=== PATIENT | female | born 1970 | race African-American/Black ===

== ENCOUNTER 2017-12-13 15:27 | Emergency (ER) | payer OTHER ==
[~2017-12-13] VITALS: Ht 167.6 cm; Wt 131.1 kg
[2017-12-13 17:27] LABS: BASOPHILS # (AUTO) 0.1 (0.0-0.1); BASOPHILS % 0.9 % (0.0-1.0); EOSINOPHILS # (AUTO) 0.3 (0.0-0.4); EOSINOPHILS % 4.7 % (0.0-6.0); HEMATOCRIT 35.6 % (34.2-44.1); HEMOGLOBIN 11.5 g/dL (12.0-16.0); LYMPHOCYTES # (AUTO) 1.6 (1.0-3.2); LYMPHOCYTES % 23.7 % (18.0-39.1); MEAN CORPUSCULAR HEMOGLOBIN 29.3 pg (28-32); MEAN CORPUSCULAR HGB CONC 32.3 g/dL (31-35); MEAN CORPUSCULAR VOLUME 90.6 fL (81-99); MONOCYTES # (AUTO) 0.3 (0.2-0.8); MONOCYTES % 4.4 % (4.4-11.3); NEUTROPHILS # (AUTO) 4.4 (2.1-6.9); NEUTROPHILS % 65.9 % (38.7-80.0); PLATELET COUNT 290 x10e3/uL (140-360); RED BLOOD COUNT 3.93 x10e6/uL (3.6-5.1); RED CELL DISTRIBUTION WIDTH 14.3 % (11.7-14.4)
[2017-12-13 17:35] LABS: INR 1.08; PROTHROMBIN TIME 13.2 seconds (11.9-14.5)
[2017-12-13 17:44] LABS: ALANINE AMINOTRANSFERASE 21 IU/L (0-55); ALBUMIN 3.4 g/dL (3.5-5.0); ALBUMIN/GLOBULIN RATIO 0.8 (0.8-2.0); ALKALINE PHOSPHATASE 71 IU/L (40-150); ANION GAP 11.7 mmol/L (8-16); BLOOD UREA NITROGEN 8 mg/dL (7-26); BUN/CREATININE RATIO 11 (6-25); CALCIUM 9.7 mg/dL (8.4-10.2); CARBON DIOXIDE 27 mmol/L (22-29); CHLORIDE 104 mmol/L (98-107); CREATINE KINASE 329 IU/L (29-168); EST GLOMERULAR FILTRATION RATE > 60 ML/MIN (60-); GLUCOSE 87 mg/dL (74-118); POTASSIUM 3.7 mmol/L (3.5-5.1); SODIUM 139 mmol/L (136-145)
--- NOTE | 2017-12-13 18:22 | Diagnostic Imaging Report ---
PROCEDURE: X-RAY CHEST, TWO VIEWS COMPARISON: None. INDICATIONS: SHORTNESS OF BREATH, LEG SWELLING FINDINGS: LUNGS: Well-inflated without mass or infiltrate. The pulmonary vasculature is normal PLEURA: No effusions or pneumothorax. HEART \T\ MEDIASTINUM: The heart is within normal size-limits. BONES \T\ SOFT TISSUES: No focal osseous lesions. Soft tissues are unremarkable. CONCLUSION: No acute thoracic abnormality. Dictated by: Keerthi Grant M.D. on 12/13/2017 at 18:22 Electronically approved by: Keerthi Grant M.D. on 12/13/2017 at 18:22
--- NOTE | 2017-12-13 20:41 | Diagnostic Imaging Report ---
EXAMINATION: CT of the chest with contrast, PE protocol. TECHNIQUE: Spiral CT images of the chest were performed from the lung apices through the level of the adrenal glands after the IV administration of 100 cc of Isovue 370. Thin section reconstructions were obtained with special concentration on the pulmonary arteries. COMPARISON: Chest PA and lateral same day CLINICAL HISTORY:Shortness of breath, bilateral leg swelling, history of rheumatoid arthritis DISCUSSION: Lungs: No filling defects are identified in the main, right or left pulmonary arteries to their segmental levels, to suggest pulmonary embolism. 4 mm subpleural nodule in the right middle lobe (series, image 60). 2 mm nodule in the lateral lingula (series 3, image 63). No other pulmonary nodules. No masses or consolidation. Airways are clear, without any endobronchial lesions. Pleura: <There is no evidence of pleural effusion or pneumothorax.> Heart and mediastinum: 6 mm hypodense nodules in the left thyroid lobe (series 2, images 9 and 10). Heart size is normal. No pericardial effusion. Aorta is not aneurysmal. Main pulmonary artery is normal in caliber, measuring 2.6 cm. Lymph nodes: No mediastinal, hilar or axillary adenopathy. Abdomen: Visualized portions of the liver, spleen, pancreas, kidneys and adrenal glands are unremarkable. Bones and soft tissues: No aggressive lytic lesion. Minimal degenerative disc changes in the thoracic spine. IMPRESSION: 1. No CT evidence of pulmonary embolism to the segmental level. 2. 4 mm subpleural nodule in the right middle lobe and 2 mm nodule in the lateral lingula. No other follow-up is indicated if this is a low risk patient, per Fleischner society guidelines 2017. 3. Lungs are otherwise clear. 4. 6 mm nodules in the left thyroid lobe. Dedicated thyroid ultrasound would be helpful for further evaluation, on a nonemergent basis. Signed by: Dr. Jatinder Albarran M.D. on 12/13/2017 8:37 PM
[2017-12-13] MEDS ORDERED: SODIUM CHLORIDE 0.9% 50ML 50 ML ONE (22:43)
[2017-12-13] MEDS ORDERED: IOPAMIDOL 370 MG/ML 200 ML INFUS..BTL INJ ONE (22:43)
== END 2017-12-14 00:21 | disposition home or self-care (01) ==
LOC: ER 15:35
DX: M79.89 Other specified soft tissue disorders (principal); R60.9 Edema, unspecified; E66.9 Obesity, unspecified
CPT/HCPCS: 36415; 71046; 71260; 80053; 82550; 82553; 83880; 84484; 84702; 85025; 85379; 85610; 85730; 93005; 93970; 99284; Q9967